=== PATIENT | male | born 1970 | race Native Hawaiian/Other Pacific Islander ===

== ENCOUNTER 2018-12-29 11:25 | Inpatient (IN) | payer OTHER ==
[2018-12-29] MEDS ORDERED: Sodium Chloride 0.9% 1,000 ML IV STA ×2 (12:09→13:42)
--- NOTE | 2018-12-29 12:22 | ED PDOC ---
HPI: Abdomen Time Seen by Provider: 12/29/18 11:39 Chief Complaint (Nursing): GI Problem Chief Complaint (Provider): Intractable vomiting History Per: Patient History/Exam Limitations: no limitations Onset/Duration Of Symptoms: Days Additional Complaint(s): 48 year old male with no significant medical history presents to ED with intractable vomiting associated with upper abdominal pain since yesterday. Patient has had episodes of abdominal pain, poor appetite, intermittent vomiting for the past 2 years and has unintentionally lost weight, going from 130 lb to 100 lb. He initially saw his PMD who prescribed antacids but never followed up and continued to have the same symptoms. However, yesterday was the first time he experienced severe pain and non-stop vomiting but denies black and bloody stool, diarrhea, constipation, fever and chills. Patient also reports darker urine but denies hematuria, frequency, or dysuria. He notes that he is both a heavy smoker and drinker. Patient states he hasn't had a drink in one week because of his symptoms. Otherwise, patient notes of having 2-3 shot per day. PMD: none provided Past Medical History Reviewed: Historical Data, Nursing Documentation, Vital Signs Vital Signs: Last Vital Signs Temp 98.2 F 12/29/18 11:37 Pulse 112 H 12/29/18 11:37 Resp 18 12/29/18 11:37 BP 111/76 12/29/18 11:37 Pulse Ox 95 12/29/18 11:37 Primary Care Provider: Non [facility] Provider, - Medical History PMH: No Chronic Diseases - Surgical History Surgical History: No Surg Hx - Family History Family History: States: Diabetes, Hypertension, Other Other Family History: gallbladder disease - Social History Current smoker - smoking cessation education provided: Yes (10 cigarettes daily) Alcohol: > 2 Drinks/Day Drugs: Denies - Home Medications Home Medications: Ambulatory Orders Medication Instructions Recorded No Known Home Med 12/29/18 - Allergies Allergies/Adverse Reactions: Allergies Allergy/AdvReac Type Severity Reaction Status Date / Time Shrimps Allergy ITCHING Uncoded 12/29/18 11:42 Review of Systems ROS Statement: Except As Marked, All Systems Reviewed And Found Negative (as per HPI) Constitutional: Positive for: Weight loss. Negative for: Fever, Chills Gastrointestinal: Positive for: Vomiting, Abdominal Pain, Other (poot appetite, darker urine). Negative for: Diarrhea, Constipation, Melena, Hematochezia Genitourinary Male: Negative for: Dysuria, Frequency, Hematuria Physical Exam - Reviewed Nursing Documentation Reviewed: Yes Vital Signs Reviewed: Yes - Physical Exam Appears: Positive for: In Acute Distress (mild distress, cachectic) Head Exam: Positive for: ATRAUMATIC, NORMOCEPHALIC Skin: Positive for: Pallor. Negative for: Normal Color (poor skin turgor), Gerry dice Eye Exam: Positive for: Normal appearance, EOMI, PERRL. Negative for: Scleral icterus ENT: Positive for: Pharynx Is (clear), Other (dry mucous membranes) Neck: Positive for: Normal, Supple Cardiovascular/Chest: Positive for: Tachycardia (with regular rhythm) Respiratory: Positive for: Normal Breath Sounds. Negative for: Respiratory Distress Gastrointestinal/Abdominal: Positive for: Bowel Sounds (normal active), Soft, Tenderness (epigastric and RUQ tenderness, negative McBurneys point tenderness). Negative for: Distended Back: Positive for: Normal Inspection. Negative for: Decreased ROM Extremity: Positive for: Normal ROM. Negative for: Deformity Lymphatic: Negative for: Adenopathy Neurological/Psych: Positive for: Awake, Alert. Negative for: Motor/Sensory Deficits Comments: cachectic - Laboratory Results Result Diagrams: 12/31/18 05:30 12/31/18 05:30 Urine dip results: Positive for: Blood, Ketones, Bilirubin. Negative for: Leukocyte Esterase, Nitrate, Glucose - ECG O2 Sat by Pulse Oximetry: 95 (RA) Pulse Ox Interpretation: Normal - Critical Care Total Time (In Min): 45 Documented Critical Care: Time excludes all time spent performint seperately billable procedures Medical Decision Making Medical Decision Making: Time: 1213 Initial Impression: malnutrition, abdominal pain, intractable vomiting DDx includes: gallbladder disease, hepatitis, intra-abdominal malignancy, diabetes, dehydration, electrolyte abnormality, PUD, liver cirrhosis Initial Plan: --BBK --Labs (CBC, CMP, Prothrombin, Hepatitis, Alcohol, Ammonia, Beta Hydoxybutyrate, LDH, Lipase, Magnesium, Phosphorous, TSH) --VBG shock panel --US (abdomen limited) --IV Fluid --Dextrose IV --Pepcid 20 mg IVP --Zofran 8 mg IV Time: 1340 -- Spoke to english language learner teacher, Dr. Ho who will come down to evaluate the patient for ICU placement. Time: 1349 -- Dr. Ho at bedside, evaluating the patient reports patient is stable for telemetry and advised to continue IV hydration and further imaging of abdomen. Time: 1355 -- Discussed with Dr. Johnson for admission. Patient to be admitted under his service for telemetry. -- Discussed with family findings and plan of care. Time: 1444 CXR RESULTS Date of service: 12/29/2018 HISTORY: DEHYDRATION COMPARISON: No prior. TECHNIQUE: 1 view obtained. FINDINGS: LUNGS: Diffuse hazy appearance of the left lung possibly due to patient rotation. S uspect minor atelectasis left medial lung base. There is a small calcified granuloma right CP angle region. PLEURA: No significant pleural effusion identified, no pneumothorax apparent. CARDIOVASCULAR: No aortic atherosclerotic calcification present. Heart size difficult to assess due to silhouetting right cardiac border which may also be secondary to patient rotation however the possibility of a pectus excavatum not excluded. No pulmonary vascular congestion. OSSEOUS STRUCTURES: No significant abnormalities. VISUALIZED UPPER ABDOMEN: Normal. OTHER FINDINGS: None. IMPRESSION: Diffuse hazy appearance of the left lung possibly due to patient rotation. Suspect minor atelectasis left medial lung base. There is a small calcified granuloma right CP angle region. 1544 US RESULTS Date of service: 12/29/2018 HISTORY: Upper abdominal pain/cachexia, eval pancreas, liver, gb COMPARISON: No prior study available comparison TECHNIQUE: Sonographic evaluation of the right upper quadrant of the abdomen. FINDINGS: LIVER: Measures 14.5 cm in length. Normal echogenicity of the liver parenchyma. No mass. No intrahepatic bile duct dilatation. Portal vein exhibits hepatopetal flow GALLBLADDER: Unremarkable. No gallstones. No sonographic Connor sign COMMON BILE DUCT: Measures 5.8 mm. No stones. No dilatation. PANCREAS: The pancreas poorly visualized due to body habitus and bowel gas. RIGHT KIDNEY: Measures 11.0 x 4.1 x 5.0 cm in length. Normal echogenicity. No calculus, mass, or hydronephrosis. AORTA: No aneurysmal dilatation. IVC: Unremarkable. OTHER FINDINGS: None . IMPRESSION: Limited study as detailed above with poor visualization of the pancreas due to body habitus and bowel gas. No evidence of cholelithiasis or sonographic Connor sign. ---- Scribe Attestation: Documented by Neri Gomez training under Jaime Cazares, acting as a scribe for Dario Mohan MD. Provider Scribe Attestation: All medical record entries made by the Scribe were at my direction and personally dictated by me. I have reviewed the chart and agree that the record accurately reflects my personal performance of the history, physical exam, medical decision making, and the department course for this patient. I have also personally directed, reviewed, and agree with the discharge instructions and disposition. Disposition - Clinical Impression Clinical Impression: Gastroenteritis, Alcoholism, Metabolic alkalosis - Disposition Disposition Time: 13:55 Condition: GUARDED - Pt Status Changed To: Hospital Disposition Of: Inpatient - Admit Certification Admit to Inpatient:: After my assessment, the patient will require hospitalization for at least two midnights. This is because of the severity of symptoms shown, intensity of services needed, and/or the medical risk in this patient being treated as an outpatient. - POA Present On Arrival: None
[2018-12-29] MEDS ORDERED: Multivitamin (MVI) 10 ML, Thiamine 100 MG, Folic Acid 1 MG in Dextrose 5%/0.45% NS 1,00... IV ONE (12:30)
[2018-12-29 12:46] LABS: VENOUS BLOOD GAS BASE EXCESS 29.7 mmol/L (0.0-2.0); VENOUS BLOOD GAS PCO2 89 mmHg (40-60); VENOUS BLOOD GAS PO2 20 mm/Hg (30-55); VENOUS BLOOD PH 7.44 (7.32-7.43)
[2018-12-29 12:57] LABS: BASO % 0.2 % (0.0-2.0); EOS % 0.1 % (0.0-4.0); HEMOGLOBIN 17.6 g/dL (12.0-18.0); LYMPH # 2.2 K/uL (1.0-4.3); LYMPH % 13.5 % (20.0-40.0); MEAN CELL VOLUME 99.9 fl (80.0-94.0); MEAN CORPUSCULAR HEMOGLOBIN 33.8 pg (27.0-31.0); MEAN CORPUSCULAR HGB CONC 33.9 g/dL (33.0-37.0); MEAN PLATELET VOLUME 8.3 fl (7.2-11.7); MONO # 1.9 K/uL (0.0-0.8); MONO % 12.1 % (0.0-10.0); NEUT # 11.8 K/uL (1.8-7.0); NEUT % 74.1 % (50.0-75.0); NRBC % 0.1 % (0.0-0.0); RBC 5.2 Mil/uL (4.40-5.90); RED CELL DISTRIBUTION WIDTH 12.6 % (11.5-14.5); WHITE BLOOD COUNT 15.9 K/uL (4.8-10.8)
[2018-12-29 12:59] LABS: ABG ALLEN TEST YES; ARTERIAL BLOOD GAS HCO3 44.5 mmol/L (21-28); ARTERIAL BLOOD GAS O2 SAT 90.7 % (95-98); ARTERIAL BLOOD GAS PCO2 61 mm/Hg (35-45); ARTERIAL BLOOD GAS PH 7.54 (7.35-7.45); ARTERIAL BLOOD GAS PO2 53 mm/Hg (80-100); ARTERIAL BLOOD GAS TCO2 54.1 mmol/L (22-28)
[2018-12-29 13:03] LABS: PROTHROMBIN TIME 11.4 Seconds (9.8-13.1)
[2018-12-29] MEDS ORDERED: Potassium Chloride 20 mEq ER Tab PO STA (13:03)
[2018-12-29 13:06] LABS: PARTIAL THROMBOPLASTIN TIME 42.9 Seconds (25.6-37.1)
[2018-12-29] MEDS ORDERED: Potassium CL 10 MEQ/50 ML 50 ML IVPB STA (13:09)
[2018-12-29 13:30] LABS: ALB/GLOB RATIO 1.2 (1.0-2.1); ALBUMIN 5.5 g/dL (3.5-5.0); ALT/SGPT 40 U/L (21-72); AST/SGOT 50 U/L (17-59); BLOOD UREA NITROGEN 63 mg/dl (9-20); CALCIUM 9.7 mg/dL (8.4-10.2); GFR NON-AFRICAN AMERICAN 16; LIPASE 744 U/L (23-300)
[2018-12-29] MEDS ORDERED: Potassium CL 10 MEQ/50 ML 0 ML ONE (13:36)
[2018-12-29] MEDS ORDERED: Potassium Chloride 20 mEq ER Tab PO ONE (13:36)
[2018-12-29] MEDS ORDERED: Iohexol 240 (50 ml) PO STA (13:53)
[2018-12-29 14:06] LABS: SQUAMOUS EPITHIAL 5 /hpf (0-5); URINE BACTERIA RARE (<OCC); URINE BILIRUBIN SMALL (NEGATIVE); URINE BLOOD SMALL (NEGATIVE); URINE CLARITY TURBID (Clear); URINE COLOR AMBER (YELLOW); URINE GLUCOSE (UA) 50 mg/dL (NEGATIVE); URINE HYALINE CAST >20 /hpf (0-2); URINE LEUKOCYTE ESTERASE NEG Leu/uL (Negative); URINE PROTEIN 100 mg/dL (NEGATIVE)
[2018-12-29] MEDS ORDERED: Iohexol 240 (50 ml) ONE (14:08)
--- NOTE | 2018-12-29 14:48 | RAD ---
Date of service: 12/29/2018 HISTORY: DEHYDRATION COMPARISON: No prior. TECHNIQUE: 1 view obtained. FINDINGS: LUNGS: Diffuse hazy appearance of the left lung possibly due to patient rotation. Suspect minor atelectasis left medial lung base. There is a small calcified granuloma right CP angle region. PLEURA: No significant pleural effusion identified, no pneumothorax apparent. CARDIOVASCULAR: No aortic atherosclerotic calcification present. Heart size difficult to assess due to silhouetting right cardiac border which may also be secondary to patient rotation however the possibility of a pectus excavatum not excluded. No pulmonary vascular congestion. OSSEOUS STRUCTURES: No significant abnormalities. VISUALIZED UPPER ABDOMEN: Normal. OTHER FINDINGS: None. IMPRESSION: Diffuse hazy appearance of the left lung possibly due to patient rotation. Suspect minor atelectasis left medial lung base. There is a small calcified granuloma right CP angle region.
--- NOTE | 2018-12-29 15:49 | US ---
Date of service: 12/29/2018 HISTORY: Upper abdominal pain/cachexia, eval pancreas, liver, gb COMPARISON: No prior study available comparison TECHNIQUE: Sonographic evaluation of the right upper quadrant of the abdomen. FINDINGS: LIVER: Measures 14.5 cm in length. Normal echogenicity of the liver parenchyma. No mass. No intrahepatic bile duct dilatation. Portal vein exhibits hepatopetal flow GALLBLADDER: Unremarkable. No gallstones. No sonographic Connor sign COMMON BILE DUCT: Measures 5.8 mm. No stones. No dilatation. PANCREAS: The pancreas poorly visualized due to body habitus and bowel gas. RIGHT KIDNEY: Measures 11.0 x 4.1 x 5.0 cm in length. Normal echogenicity. No calculus, mass, or hydronephrosis. AORTA: No aneurysmal dilatation. IVC: Unremarkable. OTHER FINDINGS: None . IMPRESSION: Limited study as detailed above with poor visualization of the pancreas due to body habitus and bowel gas. No evidence of cholelithiasis or sonographic Connor sign.
[2018-12-29 16:52] LABS: HEPATITIS B SURFACE AG Negative (NEGATIVE)
[2018-12-29 16:58] LABS: HEPATITIS A IGM NEGATIVE (NEGATIVE); HEPATITIS B CORE AB NEGATIVE (NEGATIVE)
[2018-12-29 17:09] LABS: HEPATITIS C ANTIBODY NEGATIVE (NEGATIVE)
--- NOTE | 2018-12-29 17:34 | CP.PCM.CON ---
History of Present Illness - History of Present Illness History of Present Illness: REASONS FOR CONSULT : HEYDI R/O CKD .. BUN 63 .. CRETININE 4.1 SEVERE MET ALKALOSIS WITH PH 7.54 HCO3 48 ALL EMR REVIWED .. [place] WAS SEEN AND EXAMINED 48 year old male with no significant medical history presents to ED with intractable vomiting associated with upper abdominal pain since yesterday. Patient has had episodes of abdominal pain, poor appetite, intermittent vomiting for the past 2 years and has unintentionally lost weight, going from 130 lb to 100 lb. He initially saw his PMD who prescribed antacids but never followed up and continued to have the same symptoms. However, yesterday was the first time he experienced severe pain and non-stop vomiting but denies black and bloody stool, diarrhea, constipation, fever and chills. Patient also reports darker ur ine but denies hematuria, frequency, or dysuria. He notes that he is both a heavy smoker and drinker. Patient states he hasn't had a drink in one week because of his symptoms. Otherwise, patient notes of having 2-3 shot per day. PMD: none provided Past Medical History Reviewed: Historical Data, Nursing Documentation, Vital Signs Vital Signs: Last Vital Signs Temp 98.2 F 12/29/18 11:37 Pulse 112 H 12/29/18 11:37 Resp 18 12/29/18 11:37 BP 111/76 12/29/18 11:37 Pulse Ox 95 12/29/18 11:37 Primary Care Provider: Non [facility] Provider, - Medical History PMH: No Chronic Diseases - Surgical History Surgical History: No Surg Hx - Family History Family History: States: Diabetes, Hypertension, Other Other Family History: gallbladder disease - Social History Current smoker - smoking cessation education provided: Yes (10 cigarettes daily) Alcohol: > 2 Drinks/Day Drugs: Denies - Home Medications Home Medications: Ambulatory Orders Past Patient History - Past Social History Alcohol: > 2 Drinks/Day Drugs: Denies - CARDIAC Hx Cardiac Disorders: No - PULMONARY Hx Respiratory Disorders: No - NEUROLOGICAL Hx Neurological Disorder: No - HEENT Hx HEENT Problems: No - RENAL Hx Chronic Kidney Disease: No - ENDOCRINE/METABOLIC Hx Endocrine Disorders: No - HEMATOLOGICAL/ONCOLOGICAL Hx Blood Disorders: No - INTEGUMENTARY Hx Dermatological Problems: No - MUSCULOSKELETAL/RHEUMATOLOGICAL Hx Musculoskeletal Disorders: No - GENITOURINARY/GYNECOLOGICAL Hx Genitourinary Disorders: No - PSYCHIATRIC Hx Psychophysiologic Disorder: No - SURGICAL HISTORY Hx Surgeries: No - ANESTHESIA Hx Anesthesia: No Meds Allergies/Adverse Reactions: Allergies Allergy/AdvReac Type Severity Reaction Status Date / Time Shrimps Allergy ITCHING Uncoded 12/29/18 11:42 - Medications Medications: Current Medications Multivitamins/Vitamin C 10 ml/Thiamine HCl 100 mg/ Folic Acid 1 mg/ Dextrose/Sodium Chloride 1,011.2 mls @ 125 mls/hr IV .[id number] ONE Stop: 12/29/18 20:35 Last Admin: 12/29/18 13:26 Dose: 125 mls/hr Results - Vital Signs Recent Vital Signs: Last Vital Signs Temp 98.8 F 12/29/18 16:51 Pulse 92 H 12/29/18 16:51 Resp 18 12/29/18 16:51 BP 111/68 12/29/18 16:51 Pulse Ox 97 12/29/18 16:51 - Labs Result Diagrams: 12/29/18 12:15 12/29/18 12:15 Labs: Laboratory Results - last 24 hr 12/29/18 12/29/18 12/29/18 12:15 12:15 12:15 WBC 15.9 H RBC 5.20 Hgb 17.6 Hct 52.0 H MCV 99.9 H MCH 33.8 H MCHC 33.9 RDW 12.6 Plt Count 385 MPV 8.3 Neut % (Auto) 74.1 Lymph % (Auto) 13.5 L Rock % (Auto) 12.1 H Eos % (Auto) 0.1 Baso % (Auto) 0.2 Neut # (Auto) 11.8 H Lymph # (Auto) 2.2 Rock # (Auto) 1.9 H Eos # (Auto) 0.0 Baso # (Auto) 0.0 PT INR APTT pCO2 pO2 HCO3 ABG pH ABG Total CO2 ABG O2 Saturation ABG Base Excess Ming Test ABG Potassium VBG pH VBG pCO2 VBG HCO3 VBG Total CO2 VBG O2 Sat (Calc) VBG Base Excess VBG Potassium A-a O2 Difference Glucose Lactate FiO2 Crit Value Called To Crit Value Called By Crit Value Read Back Blood Gas Notified Time Sodium 135 Potassium 4.2 Chloride 59 L Carbon Dioxide 48 H* Anion Gap 32 H BUN 63 H Creatinine 4.1 H Est GFR ( Amer) 19 Est GFR (Non-Af Amer) 16 Random Glucose 155 H Calcium 9.7 Phosphorus 12.6 H Magnesium 2.5 H Total Bilirubin 0.8 AST 50 ALT 40 Alkaline Phosphatase 92 Ammonia Lactate Dehydrogenase 501 Total Protein 10.1 H Albumin 5.5 H Globulin 4.5 H Albumin/Globulin Ratio 1.2 Lipase 744 H TSH 3rd Generation 3.26 Arterial Blood Potassium Venous Blood Potassium Urine Color Urine Clarity Urine pH Ur Specific [place] Urine Protein Urine Glucose (UA) Urine Ketones Urine Blood Urine Nitrate Urine Bilirubin Urine Urobilinogen Ur Leukocyte Esterase Urine RBC (Auto) Urine Microscopic WBC Ur Squamous Epith Cells Urine Bacteria Hyaline Casts Ur Random Sodium Ur Random Potassium Alcohol, Quantitative < 10 B-Hydroxybutyrate 1.51 H Hepatitis A IgM Ab Negative Hep Bs Antigen Negative Hep B Core IgM Ab Negative Hepatitis C Antibody Negative Blood Type Antibody Screen BBK History Checked 12/29/18 12/29/18 12/29/18 12:15 12:15 12:40 WBC RBC Hgb Hct MCV MCH MCHC RDW Plt Count MPV Neut % (Auto) Lymph % (Auto) Rock % (Auto) Eos % (Auto) Baso % (Auto) Neut # (Auto) Lymph # (Auto) Rock # (Auto) Eos # (Auto) Baso # (Auto) PT 11.4 INR 1.0 APTT 42.9 H pCO2 pO2 20 L HCO3 ABG pH ABG Total CO2 ABG O2 Saturation ABG Base Excess Ming Test ABG Potassium VBG pH 7.44 H VBG pCO2 89 H* VBG HCO3 46.4 VBG Total CO2 63.1 H VBG O2 Sat (Calc) 28.8 L VBG Base Excess 29.7 H VBG Potassium 3.8 A-a O2 Difference Glucose 151 H Lactate 4.9 H* FiO2 21.0 Crit Value Called To Dr renetta leggett Crit Value Called By 292 Crit Value Read Back Y Blood Gas Notified Time 1245 Sodium 134.0 Potassium Chloride 68.0 L Carbon Dioxide Anion Gap BUN Creatinine Est GFR ( Amer) Est GFR (Non-Af Amer) Random Glucose Calcium Phosphorus Magnesium Total Bilirubin AST ALT Alkaline Phosphatase Ammonia Lactate Dehydrogenase Total Protein Albumin Globulin Albumin/Globulin Ratio Lipase TSH 3rd Generation Arterial Blood Potassium Venous Blood Potassium 3.8 Urine Color Urine Clarity Urine pH Ur Specific [place] Urine Protein Urine Glucose (UA) Urine Ketones Urine Blood Urine Nitrate Urine Bilirubin Urine Urobilinogen Ur Leukocyte Esterase Urine RBC (Auto) Urine Microscopic WBC Ur Squamous Epith Cells Urine Bacteria Hyaline Casts Ur Random Sodium Ur Random Potassium Alcohol, Quantitative B-Hydroxybutyrate Hepatitis A IgM Ab Hep Bs Antigen Hep B Core IgM Ab Hepatitis C Antibody Blood Type O POSITIVE Antibody Screen Negative BBK History Checked No verified bt 12/29/18 12/29/18 12/29/18 12:51 12:54 13:21 WBC RBC Hgb Hct MCV MCH MCHC RDW Plt Count MPV Neut % (Auto) Lymph % (Auto) Rock % (Auto) Eos % (Auto) Baso % (Auto) Neut # (Auto) Lymph # (Auto) Rock # (Auto) Eos # (Auto) Baso # (Auto) PT INR APTT pCO2 61 H pO2 53 L HCO3 44.5 H* ABG pH 7.54 H ABG Total CO2 54.1 H ABG O2 Saturation 90.7 L ABG Base Excess 25.3 H Ming Test Yes ABG Potassium 2.7 L VBG pH VBG pCO2 VBG HCO3 VBG Total CO2 VBG O2 Sat (Calc) VBG Base Excess VBG Potassium A-a O2 Difference 20.0 Glucose 147 H Lactate 2.0 FiO2 21.0 Crit Value Called To Dr renetta leggett Crit Value Called By 292 Crit Value Read Back Y Blood Gas Notified Time 1258 Sodium 131.0 L Potassium Chloride 73.0 L Carbon Dioxide Anion Gap BUN Creatinine Est GFR ( Amer) Est GFR (Non-Af Amer) Random Glucose Calcium Phosphorus Magnesium Total Bilirubin AST ALT Alkaline Phosphatase Ammonia 19 Lactate Dehydrogenase Total Protein Albumin Globulin Albumin/Globulin Ratio Lipase TSH 3rd Generation Arterial Blood Potassium 2.7 L Venous Blood Potassium Urine Color Urine Clarity Urine pH Ur Specific [place] Urine Protein Urine Glucose (UA) Urine Ketones Urine Blood Urine Nitrate Urine Bilirubin Urine Urobilinogen Ur Leukocyte Esterase Urine RBC (Auto) Urine Microscopic WBC Ur Squamous Epith Cells Urine Bacteria Hyaline Casts Ur Random Sodium 41 Ur Random Potassium 124.9 Alcohol, Quantitative B-Hydroxybutyrate Hepatitis A IgM Ab Hep Bs Antigen Hep B Core IgM Ab Hepatitis C Antibody Blood Type Antibody Screen BBK History Checked 12/29/18 13:52 WBC RBC Hgb Hct MCV MCH MCHC RDW Plt Count MPV Neut % (Auto) Lymph % (Auto) Rock % (Auto) Eos % (Auto) Baso % (Auto) Neut # (Auto) Lymph # (Auto) Rock # (Auto) Eos # (Auto) Baso # (Auto) PT INR APTT pCO2 pO2 HCO3 ABG pH ABG Total CO2 ABG O2 Saturation ABG Base Excess Ming Test ABG Potassium VBG pH VBG pCO2 VBG HCO3 VBG Total CO2 VBG O2 Sat (Calc) VBG Base Excess VBG Potassium A-a O2 Difference Glucose Lactate FiO2 Crit Value Called To Crit Value Called By Crit Value Read Back Blood Gas Notified Time Sodium Potassium Chloride Carbon Dioxide Anion Gap BUN Creatinine Est GFR ( Amer) Est GFR (Non-Af Amer) Random Glucose Calcium Phosphorus Magnesium Total Bilirubin AST ALT Alkaline Phosphatase Ammonia Lactate Dehydrogenase Total Protein Albumin Globulin Albumin/Globulin Ratio Lipase TSH 3rd Generation Arterial Blood Potassium Venous Blood Potassium Urine Color Bere Urine Clarity Turbid Urine pH 5.0 Ur Specific [place] 1.017 Urine Protein 100 Urine Glucose (UA) 50 Urine Ketones Trace Urine Blood Small Urine Nitrate Negative Urine Bilirubin Small Urine Urobilinogen 2.0 Ur Leukocyte Esterase Neg Urine RBC (Auto) 3 Urine Microscopic WBC 15 H Ur Squamous Epith Cells 5 Urine Bacteria Rare Hyaline Casts >20 H Ur Random Sodium Ur Random Potassium Alcohol, Quantitative B-Hydroxybutyrate Hepatitis A IgM Ab Hep Bs Antigen Hep B Core IgM Ab Hepatitis C Antibody Blood Type Antibody Screen BBK History Checked Assessment & Plan - Assessment and Plan (Free Text) Assessment: HEYDI R/O CKD SEVERE MET ALKALOSIS FROM VOMITTING ACUTE PANCREATITIS ALCOHOLISM P : C/O WITH IVF AT 125 CC/H C/O WITH PO SUPPLEMENTS WILL F/U HIS RENAL FUNCTION VERY CLOSELY - Date & Time Date: 12/29/18 Time: 15:00
--- NOTE | 2018-12-29 17:58 | CT ---
Date of service: 12/29/2018 PROCEDURE: CT abdomen and pelvis HISTORY: Abdominal pain intractable vomiting COMPARISON: None. TECHNIQUE: Contiguous axial images of the abdomen and pelvis. Oral contrast was administered. No IV contrast given. Additional 2D sagittal and coronal reformats generated. Radiation dose: Total exam DLP = 190.95 mGy-cm. This CT exam was performed using one or more of the following dose reduction techniques: Automated exposure control, adjustment of the mA and/or kV according to patient size, and/or use of iterative reconstruction technique. FINDINGS: LOWER THORAX: The heart size is within range of normal. No significant pericardial effusion. There is a small hiatal hernia with wall thickening of the distal esophagus and fundus of the stomach. Findings suggest reflux with possible esophagitis LIVER: The unenhanced liver exhibits normal size and attenuation pattern without mass collection or calcification. GALLBLADDER AND BILE DUCTS: Unremarkable. No evidence of intraluminal gallbladder calculi PANCREAS: Pancreas is poorly delineated due to the lack of oral and intravenous contrast material. There is an elliptical shaped approximately 2.2 x 1.7 cm low-attenuation structure which appears to arise from the anterior pancreatic body head junction and is somewhat exophytic. This could represent a cystic pancreatic mass.. The pancreatic body exhibits areas of low attenuation is well. Recommend follow-up of CT scan of the pancreas with contrast material to further characterize the pancreas to assess for possible pancreatic neoplasm. SPLEEN: Unremarkable. No splenomegaly. ADRENALS: Large nodular appearing left adrenal gland. Possibility of underlying nodule cannot be completely excluded. KIDNEYS AND URETERS: Kidneys demonstrate relatively symmetric size. No evidence of nephrolithiasis or hydronephrosis. BLADDER: Urinary bladder is markedly distended; rule out urinary retention. REPRODUCTIVE: Unremarkable as visualized APPENDIX: The appendix is unremarkable. BOWEL: Evaluation of the bowel is limited due to incomplete opacification. The stomach is markedly distended with oral contrast material and air. Stomach does exhibit mild wall thickening. Findings could represent a gastritis and gastroparesis. Multiple loops of small bowel exhibit mild wall thickening; rule out mild enteritis as well. There is no evidence of acute mechanical bowel obstruction with oral contrast material extending into the colon to the level of the proximal transverse colon region. There is also wall thickening of the colon. Findings are consistent with an a gastritis and enterocolitis. Clinical correlation recommended. PERITONEUM: No gross free intraperitoneal air. No free or loculated fluid collections. LYMPH NODES: Unremarkable. No enlarged lymph nodes. VASCULATURE: Unremarkable. No aortic aneurysm. No aortic atherosclerotic calcification or mural plaque present. BONES: Minor multilevel degenerative spondylosis of the lower thoracic and lumbar spine. OTHER FINDINGS: None. IMPRESSION: Suspected low-attenuation mass lesion in the pancreatic head/body junction which appears to be partially exophytic measuring 2.2 x 1.7 cm. There are also heterogeneous low-attenuation changes seen in the pancreatic body and tail region. Recommend follow-up CT scan of the abdomen with contrast to assess for pancreatic neoplasm. Findings consistent with colitis. Probable mild enteritis. Rule out gastroparesis. No evidence of acute appendicitis. Markedly distended urinary bladder. Rule out urinary retention. There is an elliptical shaped approximately 2.2 x 1.7 cm low-attenuation lesion near the which appears to be arise
[2018-12-29] MEDS: Dextrose 5%/0.45% NS 1,000 ML IV SCH (21:43)
[2018-12-30 06:30] LABS: HEMOGLOBIN 13.6 g/dL (12.0-18.0); MEAN CELL VOLUME 100.4 fl (80.0-94.0); MEAN CORPUSCULAR HEMOGLOBIN 33.7 pg (27.0-31.0); MEAN CORPUSCULAR HGB CONC 33.5 g/dL (33.0-37.0); RBC 4.04 Mil/uL (4.40-5.90); RED CELL DISTRIBUTION WIDTH 12.4 % (11.5-14.5); WHITE BLOOD COUNT 10.8 K/uL (4.8-10.8)
[2018-12-30] MEDS: Dextrose 5%/0.45% NS 1,000 ML IV SCH (07:20)
[2018-12-30 07:28] LABS: ALB/GLOB RATIO 1.3 (1.0-2.1); ALBUMIN 3.7 g/dL (3.5-5.0); ALT/SGPT 36 U/L (21-72); AST/SGOT 35 U/L (17-59); BLOOD UREA NITROGEN 25 mg/dl (9-20); CALCIUM 8.6 mg/dL (8.4-10.2); GFR NON-AFRICAN AMERICAN > 60; HDL CHOLESTEROL 23 MG/DL (30-70)
[2018-12-30 07:37] LABS: LDL CHOLESTEROL 119 mg/dL (0-129)
[2018-12-30 08:18] LABS: T3 1.36 nmol/L (1.49-2.60)
[2018-12-30] MEDS ORDERED: Poly vi sol LIQUID PO SCH (09:00)
[2018-12-30] MEDS ORDERED: Potassium Chloride 20 mEq ER Tab PO ONE (09:00)
[2018-12-30] MEDS: Potassium Chloride 20 mEq 100 ML IVPB SCH ×2 (10:17→10:18)
--- NOTE | 2018-12-30 13:59 | HP ---
CHIEF COMPLAINT: Intractable vomiting. HISTORY OF PRESENT ILLNESS: This is a 48-year-old male without significant past medical history who was having vomiting, exacerbated upper abdominal pain since yesterday. So, the patient was brought to emergency room and was admitted for further management. The patient complained of on and off vomiting for about the last two years and the patient also has significant weight loss. The patient also had sought medical advice and was treated with antacid, but vomiting and abdominal pain continued. REVIEW OF SYSTEMS: Positive for abdominal pain and vomiting. Review of systems is otherwise negative for headache, dizziness, syncope, loss of consciousness, chest pain, shortness of breath, diarrhea, constipation, any joint or extremity pain. Review of systems of all other organ systems is unremarkable. PAST MEDICAL HISTORY: Unremarkable. PAST SURGICAL HISTORY: Unremarkable. PERSONAL HISTORY: The patient is currently nonsmoker, nondrinker, no substance abuse. MEDICATIONS: The patient is not on any chronic home medications. ALLERGIES: THE PATIENT IS NOT ALLERGIC TO ANY MEDICATION, BUT DOES COMPLAIN OF ALLERGY TO SHRIMP WHICH CAUSES ITCHING. FAMILY HISTORY: Significant for diabetes and hypertension. PHYSICAL EXAMINATION: GENERAL: Fairly built, underweight 48-year-old male, in no acute distress. VITAL SIGNS: Temperature afebrile, pulse 88, respirations 18, blood pressure 94/59. HEENT: Pupils reacting to light. No JVD. No thyromegaly. No lymphadenopathy. No nystagmus. Normocephalic, atraumatic skull. HEART: S1 and S2. Normal and regular. No significant murmur, gallop, or rub is heard. LUNGS: Good bilateral air exchange. No rales or rhonchi. ABDOMEN: Soft, nontender. No organomegaly. No fluid. Bowel sounds are present and normal. No sign of acute abdomen. No guarding, no rigidity, no rebound. EXTREMITIES: No edema, no calf swelling, no tenderness, no acute ischemia. CENTRAL NERVOUS SYSTEM: The patient is alert, awake, oriented x3. There is no sign of any acute gross focal motor or sensory neurological deficit. The patient was able to tolerate some food yesterday. DIAGNOSTIC DATA: Available diagnostic data reviewed. Telemetry monitoring does not reveal significant arrhythmias. WBC 15.9, hemoglobin 17.6, hematocrit is 52, platelets 385. Lactic acid level was 4.9, now down to 2. Sodium 135, potassium 4.2, chloride 59, BUN 63, creatinine 4.1, glucose 155, magnesium 2.5, phosphorus is 12.6. Lipase level is 744. CAT scan of abdomen revealed pancreatic mass, colitis, enteritis, and gastroparesis. ADMITTING IMPRESSION: Gastroenteritis, colitis, pancreatic mass, acute renal failure, and contraction alkalosis. PLAN: As ordered. Peter Johnson MD
[2018-12-30 14:31] LABS: BLOOD UREA NITROGEN 20 mg/dl (9-20); CALCIUM 8.7 mg/dL (8.4-10.2); GFR NON-AFRICAN AMERICAN > 60
--- NOTE | 2018-12-30 17:30 | CP.PCM.PN ---
Subjective - Date & Time of Evaluation Date of Evaluation: 12/30/18 Time of Evaluation: 15:00 - Subjective Subjective: SEEN ON RENAL F/U FEELS MUCH BETTER RENAL FUNCTION BACK TO NORMAL NOW WE CAN DO CT WITH CONTRAST TO DELINEATE THE PANCREATIC TUMOR ALL PREVIOUS EMR REVIEWED Objective - Vital Signs/Intake and Output Vital Signs (last 24 hours): Temp Pulse Resp BP Pulse Ox 98.4 F 83 18 108/71 98 12/30/18 16:12 12/30/18 16:12 12/30/18 16:12 12/30/18 16:12 12/30/18 16:12 Intake and Output: 12/30/18 12/30/18 06:59 18:59 Intake Total 1975 Output Total 1200 Balance 775 - Medications Medications: Current Medications Famotidine (Pepcid) 20 mg IVP Q12 [facility] Last Admin: 12/30/18 10:17 Dose: 20 mg Folic Acid (Folic Acid) 1 mg PO DAILY [facility] Last Admin: 12/30/18 08:38 Dose: 1 mg Heparin Sodium (Porcine) (Heparin) 5,000 units SC Q12 [facility]; Protocol Last Admin: 12/30/18 08:40 Dose: 5,000 units Dextrose/Sodium Chloride (Dextrose 5%/0.45% Ns 1000 Ml) 1,000 mls @ 125 mls/hr IV .Q8H [facility] Stop: 12/30/18 17:30 Last Admin: 12/30/18 07:20 Dose: 125 mls/hr Piperacillin Sod/Tazobactam (Sod 2.25 gm/ Sodium Chloride) 100 mls @ 100 mls/hr IVPB Q8 [facility]; Protocol Last Admin: 12/30/18 08:37 Dose: 100 mls/hr Multivitamins/Vitamin C (Poly Vi Starr Liq) 1 ml PO DAILY [facility] Last Admin: 12/30/18 08:38 Dose: 1 ml Ondansetron HCl (Zofran Inj) 4 mg IVP Q6 PRN PRN Reason: Nausea/Vomiting Thiamine HCl (Vitamin B1 Tab) 100 mg PO DAILY [facility] Last Admin: 12/30/18 08:38 Dose: 100 mg - Labs Labs: 12/30/18 04:30 12/30/18 14:00 PT 11.4 Seconds (9.8-13.1) 12/29/18 12:15 INR 1.0 12/29/18 12:15 APTT 42.9 Seconds (25.6-37.1) H 12/29/18 12:15 Assessment and Plan - Assessment and Plan (Free Text) Assessment: HEYDI .. PRE RENAL AZOTEMIA .. RENAL FUNCTION BACK TO NORMAL ELECTROLYTES OK PANCREATITIS PANCREATIC TUMOR .. R/O NEOPLASM ETOH ABUSE SEVERE N & V .. ABDO PAIN + WT LOSS R/O PACREATIC CA P : DECREASE IVF TO 75 CC/H MAY PROCEED WITH ABDO CT WITH CONTRAST TO R/O CA LABS IN AM
[2018-12-31 06:12] LABS: HEMOGLOBIN 13.4 g/dL (12.0-18.0); MEAN CELL VOLUME 100.5 fl (80.0-94.0); MEAN CORPUSCULAR HEMOGLOBIN 34.2 pg (27.0-31.0); RBC 3.9 Mil/uL (4.40-5.90); RED CELL DISTRIBUTION WIDTH 12.2 % (11.5-14.5); WHITE BLOOD COUNT 8.4 K/uL (4.8-10.8)
[2018-12-31 06:36] LABS: ALB/GLOB RATIO 1.3 (1.0-2.1); ALBUMIN 3.6 g/dL (3.5-5.0); ALT/SGPT 38 U/L (21-72); AST/SGOT 34 U/L (17-59); BLOOD UREA NITROGEN 14 mg/dl (9-20); CALCIUM 8.9 mg/dL (8.4-10.2); GFR NON-AFRICAN AMERICAN > 60
--- NOTE | 2018-12-31 07:45 | PN ---
DATE: 12/31/2018 SUBJECTIVE: The patient is seen and examined. Interim events noted. Consults noted and appreciated. The patient remains in progressive care unit with telemetry monitoring. Awake, responsive. Feels okay. Denies any chest pain, shortness of breath, or any abdominal pain. He tolerated food without any problem. PHYSICAL EXAMINATION: GENERAL: The patient is in no acute distress. VITAL SIGNS: Stable. HEART: S1, S2 normal and regular. LUNGS: Good bilateral air exchange. ABDOMEN: Soft, nontender. No sign of acute abdomen. No guarding. No rigidity. No rebound. Bowel sounds are present and normal. EXTREMITIES: No edema, no calf swelling, no tenderness, no acute ischemia. CENTRAL NERVOUS SYSTEM: Essentially unchanged. DIAGNOSTIC DATA: Available diagnostic data reviewed. ASSESSMENT AND PLAN: Overall, the patient's general medical condition is stable. Nephrology interventions noted and appreciated. Plan as ordered. Peter Johnson MD
[2018-12-31] MEDS: Multi Vitamins 15 mL UD Oral Solution PO SCH (08:30)
--- NOTE | 2018-12-31 14:04 | CP.PCM.PN ---
Subjective - Date & Time of Evaluation Date of Evaluation: 12/31/18 Time of Evaluation: 13:00 - Subjective Subjective: SEEN ON RENAL F/U FEELS MUCH BETTER RENAL FUNCTION HAS RETURNED BACK TO NORMAL PT IS GOING FOR MRI ABDO Objective - Vital Signs/Intake and Output Vital Signs (last 24 hours): Temp Pulse Resp BP Pulse Ox 97.5 F L 77 18 118/74 100 12/31/18 11:54 12/31/18 11:54 12/31/18 11:54 12/31/18 11:54 12/31/18 11:54 - Medications Medications: Current Medications Famotidine (Pepcid) 20 mg IVP Q12 [facility] Last Admin: 12/31/18 08:37 Dose: 20 mg Folic Acid (Folic Acid) 1 mg PO DAILY [facility] Last Admin: 12/31/18 08:29 Dose: 1 mg Heparin Sodium (Porcine) (Heparin) 5,000 units SC Q12 [facility]; Protocol Last Admin: 12/31/18 08:33 Dose: 5,000 units Piperacillin Sod/Tazobactam (Sod 2.25 gm/ Sodium Chloride) 100 mls @ 100 mls/hr IVPB Q8 [facility]; Protocol Last Admin: 12/31/18 08:31 Dose: 100 mls/hr Multivitamins/Vitamin C (Multi-Delyn Liquid) 15 ml PO 0800 [facility] Last Admin: 12/31/18 08:30 Dose: 15 ml Ondansetron HCl (Zofran Inj) 4 mg IVP Q6 PRN PRN Reason: Nausea/Vomiting Thiamine HCl (Vitamin B1 Tab) 100 mg PO DAILY [facility] Last Admin: 12/31/18 08:29 Dose: 100 mg - Labs Labs: 12/31/18 05:30 12/31/18 05:30 PT 11.4 Seconds (9.8-13.1) 12/29/18 12:15 INR 1.0 12/29/18 12:15 APTT 42.9 Seconds (25.6-37.1) H 12/29/18 12:15 Assessment and Plan - Assessment and Plan (Free Text) Assessment: ACK .. PRE RENAL AZOTEMIA .. RECOVERED PANCREATIC TUMOR S/P PANCREATITIS ETOH ABUSE P : REAASURED OFF IVF C/O [facility]
[2018-12-31] MEDS ORDERED: Gadodiamide 287 MG/ML VIAL (15ML) IV ONE (19:01)
[2018-12-31] MEDS ORDERED: Sodium Chloride 0.9% 50 ML IV ONE (19:01)
[2019-01-01 00:08] VITALS: RESP 20
[2019-01-01 05:55] LABS: MEAN CELL VOLUME 101.9 fl (80.0-94.0); MEAN CORPUSCULAR HGB CONC 33.4 g/dL (33.0-37.0); RBC 4.13 Mil/uL (4.40-5.90); WHITE BLOOD COUNT 9.4 K/uL (4.8-10.8)
[2019-01-01 06:07] LABS: ALB/GLOB RATIO 1.3 (1.0-2.1); ALBUMIN 4.1 g/dL (3.5-5.0); ALT/SGPT 37 U/L (21-72); AST/SGOT 46 U/L (17-59); BLOOD UREA NITROGEN 15 mg/dl (9-20); GFR NON-AFRICAN AMERICAN > 60
[2019-01-01] MEDS: Multi Vitamins 15 mL UD Oral Solution PO SCH (08:58)
--- NOTE | 2019-01-01 09:54 | CP.PCM.PN ---
<Audra Weeks - Last Filed: 01/01/19 10:02> Subjective - Date & Time of Evaluation Date of Evaluation: 01/01/19 Time of Evaluation: 06:40 - Subjective Subjective: Patient seen and examined this morning with Dr. Johnson. Patient admitted for evaluation and treatment of abdominal pain, n/v, metabolic alkalosis, colitis and pancreatic mass. - NAD, no acute event overnight, tolerating PO intake, denies any fever, n/v or diarrhea. - Awaiting Abdo MRI result for evaluation of Pancreatic mass Objective - Vital Signs/Intake and Output Vital Signs (last 24 hours): Temp Pulse Resp BP Pulse Ox 97.8 F 76 20 131/87 99 01/01/19 08:22 01/01/19 08:22 01/01/19 08:22 01/01/19 08:22 01/01/19 08:22 - Medications Medications: Current Medications Famotidine (Pepcid) 20 mg IVP Q12 [facility] Last Admin: 01/01/19 09:03 Dose: 20 mg Folic Acid (Folic Acid) 1 mg PO DAILY [facility] Last Admin: 01/01/19 08:58 Dose: 1 mg Heparin Sodium (Porcine) (Heparin) 5,000 units SC Q12 [facility]; Protocol Last Admin: 01/01/19 08:58 Dose: 5,000 units Multivitamins/Vitamin C (Multi-Delyn Liquid) 15 ml PO 0800 [facility] Last Admin: 01/01/19 08:58 Dose: 15 ml Ondansetron HCl (Zofran Inj) 4 mg IVP Q6 PRN PRN Reason: Nausea/Vomiting Thiamine HCl (Vitamin B1 Tab) 100 mg PO DAILY [facility] Last Admin: 01/01/19 08:58 Dose: 100 mg - Labs Labs: 01/01/19 04:35 01/01/19 04:35 PT 11.4 Seconds (9.8-13.1) 12/29/18 12:15 INR 1.0 12/29/18 12:15 APTT 42.9 Seconds (25.6-37.1) H 12/29/18 12:15 - Constitutional Appears: No Acute Distress - Head Exam Head Exam: NORMAL INSPECTION - Eye Exam Eye Exam: EOMI, Normal appearance, PERRL Pupil Exam: NORMAL ACCOMODATION - ENT Exam ENT Exam: Mucous Membranes Moist - Neck Exam Neck Exam: Normal Inspection - Respiratory Exam Respiratory Exam: Clear to Ausculation Bilateral, NORMAL BREATHING PATTERN. a bsent: Rhonchi, Wheezes - Cardiovascular Exam Cardiovascular Exam: REGULAR RHYTHM, +S1, +S2 - GI/Abdominal Exam GI & Abdominal Exam: Soft, Normal Bowel Sounds. absent: Rigid, Tenderness, Mass, Pulsatile Mass, Rebound - Extremities Exam Extremities Exam: Full ROM, Normal Capillary Refill, Normal Inspection - Back Exam Back Exam: NORMAL INSPECTION. absent: CVA tenderness (L), CVA tenderness (R) - Neurological Exam Neurological Exam: Alert, Awake, CN II-XII Intact, Normal Gait, Oriented x3 Neuro motor strength exam: Left Upper Extremity: 5, Right Upper Extremity: 5, Left Lower Extremity: 5, Right Lower Extremity: 5 - Psychiatric Exam Psychiatric exam: Normal Affect - Skin Skin Exam: Dry, Intact, Normal Color, Warm Assessment and Plan - Assessment and Plan (Free Text) Assessment: A/P: 48 y/o M admitted for evaluation and treatment of abdominal pain, n/v, metabolic alkalosis, HEYDI, colitis and pancreatic mass. Abdominal pain, nausea and Vomiting: Resolved, CT + for pancreatic mass and colitis, GI recommendations appreciated, f/u Abd MRI, tolerating PO intake Metabolic Alkalosis: Improved, S/p IVF, encourage PO intake Pancreatic mass on CT: GI recommendations appreciated, f/u Abd MRI HEYDI: Resolved, s/p IVF Alcohol Abuse: C/w CIWA protocol, monitor for any withdrawal symptoms, C/w Folate, multi-vitamins and Thiamine DVT PPX: Heprin SC GI PPX: C/w Pepcid Case discussed with Dr. Johnson <Peter Johnson - Last Filed: 01/02/19 11:56> Objective - Vital Signs/Intake and Output Vital Signs (last 24 hours): Temp Pulse Resp BP Pulse Ox 97.7 F 78 20 126/84 100 01/01/19 12:25 01/01/19 12:25 01/01/19 12:25 01/01/19 12:25 01/01/19 12:25 - Labs Labs: 01/01/19 04:35 01/01/19 04:35 PT 11.4 Seconds (9.8-13.1) 12/29/18 12:15 INR 1.0 12/29/18 12:15 APTT 42.9 Seconds (25.6-37.1) H 12/29/18 12:15 Assessment and Plan - Assessment and Plan (Free Text) Assessment: Patient was personally seen and examined by me in rounds with residents. Available labs and diagnostic data reviewed. Case, Patient's condition and management plan discussed with residents in rounds. Agree with resident's progress note. Plan: As ordered.
--- NOTE | 2019-01-01 10:14 | CP.PCM.PN ---
Subjective - Date & Time of Evaluation Date of Evaluation: 01/01/19 Time of Evaluation: 10:13 - Subjective Subjective: no overnight events Objective - Vital Signs/Intake and Output Vital Signs (last 24 hours): Temp Pulse Resp BP Pulse Ox 97.8 F 76 20 131/87 99 01/01/19 08:22 01/01/19 08:22 01/01/19 08:22 01/01/19 08:22 01/01/19 08:22 - Medications Medications: Current Medications Famotidine (Pepcid) 20 mg IVP Q12 [facility] Last Admin: 01/01/19 09:03 Dose: 20 mg Folic Acid (Folic Acid) 1 mg PO DAILY [facility] Last Admin: 01/01/19 08:58 Dose: 1 mg Heparin Sodium (Porcine) (Heparin) 5,000 units SC Q12 [facility]; Protocol Last Admin: 01/01/19 08:58 Dose: 5,000 units Multivitamins/Vitamin C (Multi-Delyn Liquid) 15 ml PO 0800 [facility] Last Admin: 01/01/19 08:58 Dose: 15 ml Ondansetron HCl (Zofran Inj) 4 mg IVP Q6 PRN PRN Reason: Nausea/Vomiting Thiamine HCl (Vitamin B1 Tab) 100 mg PO DAILY [facility] Last Admin: 01/01/19 08:58 Dose: 100 mg - Labs Labs: 01/01/19 04:35 01/01/19 04:35 PT 11.4 Seconds (9.8-13.1) 12/29/18 12:15 INR 1.0 12/29/18 12:15 APTT 42.9 Seconds (25.6-37.1) H 12/29/18 12:15 - Neck Exam Neck Exam: Normal Inspection - Respiratory Exam Respiratory Exam: Clear to Ausculation Bilateral, NORMAL BREATHING PATTERN - Cardiovascular Exam Cardiovascular Exam: REGULAR RHYTHM - GI/Abdominal Exam GI & Abdominal Exam: Soft, Normal Bowel Sounds Assessment and Plan - Assessment and Plan (Free Text) Assessment: 48 yo male with coltis and pancreatic lesions awaiting MRI result DC planning once able
--- NOTE | 2019-01-01 12:18 | MRI ---
MRI abdomen without/with IV contrast Indication: pancreatic lesion, pancreatic protocol Technique: Multiplanar, multi sequence magnetic resonance images of the abdomen were obtained without and with the administration of intravenous gadolinium using a multi phase abdomen protocol. A total of 889 images submitted for review Comparison: CT of the abdomen and pelvis without IV contrast performed 12/29/18, limited abdominal ultrasound performed 12/29/18 Findings: Indeterminate 5 mm T2 hepatic hypodensity within the right lobe which appears T1 hypointense with postcontrast enhancement (series 4, image 20). Pancreatic cystic lesions are evident (at least 3) which appear T2 hyperintense, T1 hypointense without appreciated postcontrast enhancement. At the pancreatic body there is a 1.9 x 2.3 cm cystic mass. At the pancreatic tail there are 2 cystic masses measuring approximately 1.9 x 1.9 cm and more distally 1.6 x 1.1 cm.The pancreatic duct is not dilated. Left adrenal gland hypertrophy. The right adrenal gland appears unremarkable. The kidneys enhance symmetrically. No hydronephrosis or obstructing calculus evident. Decompressed gallbladder limits evaluation. Distal CBD is not well seen. The spleen appears unremarkable. Limited views of the inferior thorax appear unremarkable. Impression: At least 3 pancreatic cystic masses identified as above measuring approximately 1.9 x 2.3 cm, 1.9 x 1.9 cm, and 1.6 x 1.1 cm. Differential diagnosis includes cystic neoplasm versus sequela of prior pancreatitis (dilated side duct radicles or pseudocyst). Indeterminate too small to definitively characterize right hepatic lobe T2 hyperintense lesion which demonstrates postcontrast enhancement. Correlate clinically and recommend close interval follow-up as neoplasm is not excluded. Left adrenal gland hypertrophy. Distal CBD is not well seen. Preliminary impression was provided by [employer].
[2019-01-01 12:26] VITALS: BP 126/84; PULSE 78; TEMP 97.7; O2SAT 100
--- NOTE | 2019-01-01 12:40 | CP.PCM.DIS ---
Provider - Provider Date of Admission: 12/29/18 13:51 Attending physician: Peter Johnson MD Primary care physician: None Consults: 12/29/18 13:50 Critical Care Consult Stat Comment: Consulting Provider: Shu Ho Consulting Physician: Shu Ho Reason for Consult: severe metabolic acidosis 12/29/18 13:55 Nephrology Consult Stat Comment: Consulting Provider: Mariela Cantu Consulting Physician: Mariela Cantu Reason for Consult: metabolic alkalosis and kidney injury 12/29/18 17:33 Gastroenterology Consult Routine Comment: Consulting Provider: Bruno Medina Consulting Physician: Bruno Medina Reason for Consult: Intractable vomiting, elevated Lipase Time Spent in preparation of Discharge (in minutes): 40 Diagnosis - Discharge Diagnosis (1) Abdominal pain Status: Resolved (2) Pancreatic mass Status: Acute (3) Metabolic alkalosis Status: Resolved (4) HEYDI (acute kidney injury) Status: Resolved (5) Alcohol abuse Status: Chronic Hospital Course - Lab Results Lab Results: Micro Results 12/29/18 12:15 Blood-Venous Blood Culture - Preliminary NO GROWTH AFTER 48 HOURS 12/29/18 12:31 Blood-Venous Blood Culture - Preliminary NO GROWTH AFTER 48 HOURS 12/29/18 13:52 Urine Random Urine Culture - Final No Growth (<1,000 CFU/ML) Most Recent Lab Values WBC 9.4 K/uL (4.8-10.8) 01/01/19 04:35 RBC 4.13 Mil/uL (4.40-5.90) L 01/01/19 04:35 Hgb 14.0 g/dL (12.0-18.0) 01/01/19 04:35 Hct 42.1 % (35.0-51.0) 01/01/19 04:35 MCV 101.9 fl (80.0-94.0) H 01/01/19 04:35 MCH 34.0 pg (27.0-31.0) H 01/01/19 04:35 MCHC 33.4 g/dL (33.0-37.0) 01/01/19 04:35 RDW 12.0 % (11.5-14.5) 01/01/19 04:35 Plt Count 280 K/uL (130-400) 01/01/19 04:35 MPV 8.3 fl (7.2-11.7) 12/29/18 12:15 Neut % (Auto) 74.1 % (50.0-75.0) 12/29/18 12:15 Lymph % (Auto) 13.5 % (20.0-40.0) L 12/29/18 12:15 [place] % (Auto) 12.1 % (0.0-10.0) H 12/29/18 12:15 Eos % (Auto) 0.1 % (0.0-4.0) 12/29/18 12:15 Baso % (Auto) 0.2 % (0.0-2.0) 12/29/18 12:15 Neut # (Auto) 11.8 K/uL (1.8-7.0) H 12/29/18 12:15 Lymph # (Auto) 2.2 K/uL (1.0-4.3) 12/29/18 12:15 [place] # (Auto) 1.9 K/uL (0.0-0.8) H 12/29/18 12:15 Eos # (Auto) 0.0 K/uL (0.0-0.7) 12/29/18 12:15 Baso # (Auto) 0.0 K/uL (0.0-0.2) 12/29/18 12:15 PT 11.4 Seconds (9.8-13.1) 12/29/18 12:15 INR 1.0 12/29/18 12:15 APTT 42.9 Seconds (25.6-37.1) H 12/29/18 12:15 pCO2 61 mm/Hg (35-45) H 12/29/18 12:54 pO2 53 mm/Hg (80-100) L 12/29/18 12:54 HCO3 44.5 mmol/L (21-28) H* 12/29/18 12:54 ABG pH 7.54 (7.35-7.45) H 12/29/18 12:54 ABG Total CO2 54.1 mmol/L (22-28) H 12/29/18 12:54 ABG O2 Saturation 90.7 % (95-98) L 12/29/18 12:54 ABG Base Excess 25.3 mmol/L (-2.0-3.0) H 12/29/18 12:54 Ming Test Yes 12/29/18 12:54 ABG Potassium 2.7 mmol/L (3.6-5.2) L 12/29/18 12:54 VBG pH 7.44 (7.32-7.43) H 12/29/18 12:40 VBG pCO2 89 mmHg (40-60) H* 12/29/18 12:40 VBG HCO3 46.4 mmol/L 12/29/18 12:40 VBG Total CO2 63.1 mmol/L (22-28) H 12/29/18 12:40 VBG O2 Sat (Calc) 28.8 % (40-65) L 12/29/18 12:40 VBG Base Excess 29.7 mmol/L (0.0-2.0) H 12/29/18 12:40 VBG Potassium 3.8 mmol/L (3.6-5.2) 12/29/18 12:40 A-a O2 Difference 20.0 mm/Hg 12/29/18 12:54 Sodium 131.0 mmol/L (132-148) L 12/29/18 12:54 Chloride 73.0 mmol/L (98-107) L 12/29/18 12:54 Glucose 147 mg/dL (75-110) H 12/29/18 12:54 Lactate 2.0 mmol/L (0.7-2.1) 12/29/18 12:54 FiO2 21.0 % 12/29/18 12:54 Crit Value Called To Dr renetta leggett 12/29/18 12:54 Crit Value Called By Alejandro 12/29/18 12:54 Crit Value Read Back Y 12/29/18 12:54 Blood Gas Notified Time 1258 12/29/18 12:54 Sodium 139 mmol/l (132-148) 01/01/19 04:35 Potassium 4.3 MMOL/L (3.6-5.0) 01/01/19 04:35 Chloride 101 mmol/L (98-107) 01/01/19 04:35 Carbon Dioxide 29 mmol/L (22-30) 01/01/19 04:35 Anion Gap 13 (10-20) 01/01/19 04:35 BUN 15 mg/dl (9-20) 01/01/19 04:35 Creatinine 0.8 mg/dl (0.8-1.5) 01/01/19 04:35 Est GFR ( Amer) > 60 01/01/19 04:35 Est GFR (Non-Af Amer) > 60 01/01/19 04:35 Random Glucose 109 mg/dL (75-110) 01/01/19 04:35 Calcium 10.0 mg/dL (8.4-10.2) 01/01/19 04:35 Phosphorus 1.8 mg/dl (2.5-4.5) L 12/31/18 05:30 Magnesium 2.2 MG/DL (1.6-2.3) 12/31/18 05:30 Total Bilirubin 0.3 mg/dl (0.2-1.3) 01/01/19 04:35 AST 46 U/L (17-59) 01/01/19 04:35 ALT 37 U/L (21-72) 01/01/19 04:35 Alkaline Phosphatase 59 U/L (38-126) 01/01/19 04:35 Ammonia 19 umol/L (9-33) 12/29/18 12:51 Lactate Dehydrogenase 501 U/L (313-618) 12/29/18 12:15 Total Protein 7.2 G/DL (6.3-8.2) 01/01/19 04:35 Albumin 4.1 g/dL (3.5-5.0) 01/01/19 04:35 Globulin 3.1 gm/dL (2.2-3.9) 01/01/19 04:35 Albumin/Globulin Ratio 1.3 (1.0-2.1) 01/01/19 04:35 Triglycerides 144 mg/DL (0-149) 12/30/18 04:30 Cholesterol 184 mg/dL (0-199) 12/30/18 04:30 LDL Cholesterol Direct 119 mg/dL (0-129) 12/30/18 04:30 HDL Cholesterol 23 MG/DL (30-70) L 12/30/18 04:30 Lipase 744 U/L (23-300) H 12/29/18 12:15 Vitamin B12 754 pg/mL (239-931) 12/30/18 04:30 Total T3 1.36 nmol/L (1.49-2.60) L 12/30/18 04:30 TSH 3rd Generation 1.12 mIU/ML (0.46-4.68) 12/30/18 04:30 Arterial Blood Potassium 2.7 mmol/L (3.6-5.2) L 12/29/18 12:54 Venous Blood Potassium 3.8 mmol/L (3.6-5.2) 12/29/18 12:40 Urine Color Bere (YELLOW) 12/29/18 13:52 Urine Clarity Turbid (Clear) 12/29/18 13:52 Urine pH 5.0 (5.0-8.0) 12/29/18 13:52 Ur Specific [place] 1.017 (1.003-1.030) 12/29/18 13:52 Urine Protein 100 mg/dL (NEGATIVE) 12/29/18 13:52 Urine Glucose (UA) 50 mg/dL (NEGATIVE) 12/29/18 13:52 Urine Ketones Trace mg/dL (NEGATIVE) 12/29/18 13:52 Urine Blood Small (NEGATIVE) 12/29/18 13:52 Urine Nitrate Negative (NEGATIVE) 12/29/18 13:52 Urine Bilirubin Small (NEGATIVE) 12/29/18 13:52 Urine Urobilinogen 2.0 mg/dL (0.2-1.0) 12/29/18 13:52 Ur Leukocyte Esterase Neg Slava/uL (Negative) 12/29/18 13:52 Urine RBC (Auto) 3 /hpf (0-3) 12/29/18 13:52 Urine Microscopic WBC 15 /hpf (0-5) H 12/29/18 13:52 Ur Squamous Epith Cells 5 /hpf (0-5) 12/29/18 13:52 Urine Bacteria Rare (<OCC) 12/29/18 13:52 Hyaline Casts >20 /hpf (0-2) H 12/29/18 13:52 Ur Random Sodium 41 meq/L 12/29/18 13:21 Ur Random Potassium 124.9 mmol/L 12/29/18 13:21 Alcohol, Quantitative < 10 mg/dl (0-10) 12/29/18 12:15 B-Hydroxybutyrate 1.51 mM (0.02-0.27) H 12/29/18 12:15 Hepatitis A IgM Ab Negative (NEGATIVE) 12/29/18 12:15 Hep Bs Antigen Negative (NEGATIVE) 12/29/18 12:15 Hep B Core IgM Ab Negative (NEGATIVE) 12/29/18 12:15 Hepatitis C Antibody Negative (NEGATIVE) 12/29/18 12:15 Blood Type O POSITIVE 12/29/18 12:15 Blood Type Confirm O POSITIVE 12/30/18 04:30 Antibody Screen Negative 12/29/18 12:15 BBK History Checked No verified bt 12/29/18 12:15 - Hospital Course Hospital Course: 48 y/o M admitted for evaluation and treatment of abdominal pain, n/v, metabolic alkalosis, HEYDI, colitis and pancreatic mass. After admission, patient was started on IVF, CT abdo: + for pancreatic mass. Nephrology was consulted after found to have HEYDI which resolved after IVF. GI was consulted for Pancreatic mass who recommended MRI abdo: Pancreatic mass/questionable Cystic neoplasm. Patient is cleared by GI and possible outpatient biopsy with in a week, CA 19-9 to follow by GI. Patient currently asymptomatic, VS/Labs and imaging work ups reviewed, tolerating PO intake and stable for d/c with close outpatient follow up. Patient understands and agrees with plan. Case discussed with Dr. Johnson, Agrees with plan. Discharge Exam - Head Exam Head Exam: NORMAL INSPECTION - Eye Exam Eye Exam: EOMI, Normal appearance, PERRL Pupil Exam: NORMAL ACCOMODATION - ENT Exam ENT Exam: Mucous Membranes Moist - Neck Exam Neck exam: Normal Inspection - Respiratory Exam Respiratory Exam: Clear to PA & Lateral, NORMAL BREATHING PATTERN - Cardiovascular Exam Cardiovascular Exam: REGULAR RHYTHM, +S1, +S2 - GI/Abdominal Exam GI & Abdominal Exam: Normal Bowel Sounds, Soft. absent: Rigid, Tenderness - Extremities Exam Extremities exam: normal inspection - Back Exam Back exam: absent: CVA tenderness (L), CVA tenderness (R) - Neurological Exam Neurological exam: Alert, CN II-XII Intact, Normal Gait, Oriented x3 - Psychiatric Exam Psychiatric exam: Normal Affect - Skin Skin Exam: Normal Color, Warm Discharge Plan - Discharge Medications Prescriptions: Famotidine [Pepcid] 20 mg IVP Q12 #30 vial Folic Acid 1 mg PO DAILY #30 tab Thiamine [Vitamin B1 Tab] 100 mg PO DAILY #30 tab - Follow Up Plan Condition: GUARDED Disposition: HOME/ ROUTINE Instructions: Viral Gastroenteritis, Adult (DC), Alcohol Abuse and Alcoholism (DC) Additional Instructions: - Avoid Alcohol - Follow up with GI, Dr. Medina as outpatient for further management of pancreatic mass in 1 week - C/w Pepcid, Folate, Thiamine and vitamins - Tylenol/Motrin for pain - Follow up with PMD in 1 week Referrals: Peter Johnson MD [Staff Provider] - Bruno Meidna MD, PhD [Staff Provider] -
--- NOTE | 2019-01-02 08:39 | CON ---
DATE: 12/31/2018 REFERRING PHYSICIAN: Peter Johnson MD REASON FOR CONSULTATION: Abdominal pain, nausea and vomiting. HISTORY OF PRESENT ILLNESS: This is a 48-year-old male with no past medical history, comes in with abdominal pain, nausea and vomiting for the past couple of days. Has unintentional weight loss for the past years so. resolved. The patient drinks heavily couple of weeks. Currently lying in bed comfortably, in no apparent distress. PAST MEDICAL HISTORY: As above. PAST SURGICAL HISTORY: As above. MEDICATIONS: Have been reviewed. REVIEW OF SYSTEMS: All other systems have been reviewed and negative apart from the HPI. PHYSICAL EXAMINATION: VITAL SIGNS: Here in the hospital are grossly unremarkable. GENERAL: Pleasant elderly male, lying in bed comfortable, in no apparent distress. HEENT: Head: Normocephalic and atraumatic. Eyes: Pupils are equal and reactive to light bilaterally. No conjunctival pallor or icterus. NECK: Supple. Normal range of motion. No lymph nodes appreciated. LUNGS: Coarse breath sounds bilaterally. HEART: S1 and S2. Regular rate and rhythm. NEUROLOGICAL: Alert and oriented x3. LABORATORY DATA: Labs and radiology have been reviewed. Labs include WBC of 8.4, hemoglobin 13.4, hematocrit 39.2, platelet count of 265. LFTs essentially unremarkable. CAT scan abdomen and pelvis shows mass in the head, body, and neck . ASSESSMENT AND PLAN: This is a 48-year-old male with abdominal pain, nausea,vomiting, and colitis. CAT scan findings are concerning for pancreatic neoplasm. We will get MRI. Advance diet as tolerated. Antibiotics for now. Thank you for the consult. Bruno Medina MD/ PhD cc: Peter Johnson MD
== END 2019-01-01 15:00 | disposition home or self-care (01) | DRG 682 ==
LOC: H.ER 11:25 → H.ERHOLD 13:51 → H.TEL 16:35
PROVIDERS: ADMIT Internal Medicine; ATTEND Internal Medicine
DX: N17.9 Acute kidney failure, unspecified (principal); K85.90 Acute pancreatitis without necrosis or infection, unspecified; E87.3 Alkalosis; E46 Unspecified protein-calorie malnutrition; Z68.1 Body mass index [BMI] 19.9 or less, adult; D49.0 Neoplasm of unspecified behavior of digestive system; F10.20 Alcohol dependence, uncomplicated; E86.0 Dehydration; K52.9 Noninfective gastroenteritis and colitis, unspecified; F17.210 Nicotine dependence, cigarettes, uncomplicated; Z91.013 Allergy to seafood